=== PATIENT | female | born 1995 | race Caucasian/White ===

== ENCOUNTER → 2024-07-05 13:42 | Outpatient (REF) | payer OTHER, SELFPAY | LOC: RAD 13:42 | PROVIDERS: ATTENDING PHYSICIAN Nurse Practitioner Family; FAMILY PHYSICIAN Family Medicine | DX: Z34.90 Encounter for supervision of normal pregnancy, unspecified, unspecified trimester (principal) | CPT/HCPCS: 76801 ==

== ENCOUNTER → 2024-07-28 10:39 | Outpatient (REF) | payer OTHER, SELFPAY | LOC: PNTC 10:39 | PROVIDERS: ATTENDING PHYSICIAN Obstetrics & Gynecology | DX: O35.5XX0 Maternal care for (suspected) damage to fetus by drugs, not applicable or unspecified (principal); O98.519 Other viral diseases complicating pregnancy, unspecified trimester; U07.1 COVID-19 | CPT/HCPCS: 76801; 76813 ==

== ENCOUNTER → 2024-09-22 08:50 | Outpatient (REF) | payer OTHER, SELFPAY | LOC: PNTC 08:50 | PROVIDERS: ATTENDING PHYSICIAN Obstetrics & Gynecology | DX: O99.320 Drug use complicating pregnancy, unspecified trimester (principal); O98.53 Other viral diseases complicating the puerperium | CPT/HCPCS: 76811 ==

== ENCOUNTER → 2024-10-25 09:00 | Outpatient (REF) | payer OTHER, SELFPAY | LOC: PNTC 09:00 | PROVIDERS: ATTENDING PHYSICIAN Obstetrics & Gynecology | DX: O44.40 Low lying placenta NOS or without hemorrhage, unspecified trimester (principal); O98.519 Other viral diseases complicating pregnancy, unspecified trimester | CPT/HCPCS: 76816; 76817 ==

== ENCOUNTER → 2024-11-22 08:54 | Outpatient (REF) | payer OTHER, SELFPAY | LOC: PNTC 08:54 | PROVIDERS: ATTENDING PHYSICIAN Obstetrics & Gynecology | DX: O44.40 Low lying placenta NOS or without hemorrhage, unspecified trimester (principal); O98.519 Other viral diseases complicating pregnancy, unspecified trimester | CPT/HCPCS: 76816; 76817 ==

== ENCOUNTER → 2024-12-20 14:21 | Outpatient (REF) | payer OTHER, SELFPAY | LOC: PNTC 14:21 | PROVIDERS: ATTENDING PHYSICIAN Obstetrics & Gynecology | DX: O44.40 Low lying placenta NOS or without hemorrhage, unspecified trimester (principal); O99.891 Other specified diseases and conditions complicating pregnancy | CPT/HCPCS: 76816; 76817 ==

== ENCOUNTER → 2025-01-17 13:17 | Outpatient (REF) | payer OTHER, SELFPAY | LOC: PNTC 13:17 | PROVIDERS: ATTENDING PHYSICIAN Obstetrics & Gynecology | DX: O36.60X0 Maternal care for excessive fetal growth, unspecified trimester, not applicable or unspecified (principal) | CPT/HCPCS: 76816 ==

== ENCOUNTER 2025-01-29 09:22 | Inpatient (IN) | payer OTHER, SELFPAY ==
[2025-01-29 09:32] VITALS: BP 129/92; BMI 27.8
[2025-01-29] MEDS: LR 1000 IV ×2 (10:25→16:48)
[2025-01-29 10:46] LABS: % Basophils 0.3 % (0-2); % Eosinophils 0.2 % (0-6); % Immature Granulocytes 0.6 % (0-0.5); % Lymphocytes 10.8 % (20.5-51.1); % Monocytes 6.7 % (1.7-9.3); % Neutrophils 81.4 % (42.2-75.2); Absolute Immature Granulocytes 0.1 10^3/uL (0-0.05); Absolute Lymphocytes 1.7 10^3/uL (1.2-3.4); Absolute Monocytes 1.1 10^3/uL (0.1-0.6); Absolute Neutrophils 12.9 10^3/uL (1.4-6.5); Hematocrit 38.2 % (37.0-47.0); Hemoglobin 13.4 g/dL (12.0-16.0); Mean Corp Hgb Conc. 35.1 g/dL (33.0-37.0); Mean Corpuscular Volume 88.4 fL (81.0-99.0); Nucleated Red Blood Cells % 0 %; Platelet Count 206 10^3/uL (130-400); Red Blood Cell Count 4.32 10^6/uL (4.20-5.40); Red Cell Dist. Width 12.5 % (11.5-14.5); White Blood Cell Count 15.9 10^3/uL (4.8-10.8)
[2025-01-29] MEDS: SUBLIMAZE 100 MCG EPIDURAL (16:28)
[2025-01-29] MEDS: FENTANYL/BUPIVACAINE 100 EPIDURAL (16:29)
[2025-01-29] MEDS: PITOCIN 30 UNITS/NSS 500 ML IV (20:06)
[2025-01-30] MEDS: FENTANYL/BUPIVACAINE 100 EPIDURAL (00:02)
[2025-01-30] MEDS: LR 1000 IV (00:04)
[2025-01-30] MEDS: PITOCIN 30 UNITS/NSS 500 ML IV (05:25)
[2025-01-30] MEDS: SENOKOT-S 1 TABLET PO (08:29)
[2025-01-30] MEDS: MOTRIN 600 MG PO (17:25)
[2025-01-30] MEDS: PRENATAL PLUS 1 TABLET PO (20:12)
[2025-01-30] MEDS: FEOSOL 325 MG PO (20:12)
[2025-01-31] MEDS: MOTRIN 600 MG PO ×3 (02:53→18:24)
[2025-01-31 04:32] LABS: Hematocrit 35.5 % (37.0-47.0); Hemoglobin 12.3 g/dL (12.0-16.0)
[2025-01-31] MEDS: SENOKOT-S 1 TABLET PO (10:02)
[2025-01-31] MEDS: PRENATAL PLUS 1 TABLET PO (19:47)
[2025-01-31] MEDS: FEOSOL PO ×2 (19:47→19:53)
[2025-02-01] MEDS: MOTRIN 600 MG PO ×2 (04:50→11:43)
--- NOTE | 2025-02-01 09:59 | CM ---
Met with new parents Didier and Leonel at bedside
Acknowledged listed address and phone numbers. Living in home are mom and dad
Parents have named their Sofia Clinton
Mom reports she plans to breast feed and has a breast pump
Mom reports she has supplies for including crib and car seat
Peds - [facility]
Mom scored 12 on PPD scale
Discussed with mom - reports she hasn't been sleeping well since 's . Acknowledged past hx of anxiety/depression. Acknowledged she has seen a therapist in the past based in [place].
Mom reports SO Leonel is supportive and her parents will be coming to help her with the baby for a few weeks - feels she has support and feels safe at home
Encouraged to get rest and seek assistance if she feels overwhelmed
Encouraged to contact her therapist if she feels she needs additional support
Given information for [facility] VN program - encouraged to call to self-enroll for additional support if needed
Updated GUILLERMO Delaney
[2025-02-01] MEDS: SENOKOT-S 1 TABLET PO (11:42)
[2025-02-01 14:57] LABS: Syphilis/T. pallidum Ab Reflex Negative (Negative)
== END 2025-02-01 13:03 | disposition home or self-care (01) | DRG 807 ==
LOC: LDRP 09:22
PROVIDERS: ADMITTING PHYSICIAN Obstetrics & Gynecology; FAMILY PHYSICIAN Family Medicine
PROC: 10E0XZZ Delivery of Products of Conception, External Approach (ICD-10-PCS; 2025-01-30)
PROC: 0HQ9XZZ Repair Perineum Skin, External Approach (ICD-10-PCS; 2025-01-30)
DX: O70.0 First degree perineal laceration during delivery (principal); Z37.0 Single live birth; Z3A.38 38 weeks gestation of pregnancy; O69.81X0 Labor and delivery complicated by cord around neck, without compression, not applicable or unspecified
CPT/HCPCS: 88307; 36415; 85014; 85018; 85025; 86780; 86850; 86900; 86901